=== PATIENT | female | born 1955 | race Two or more races ===

== ENCOUNTER 2017-08-03 09:50 | Day surgery (SDC) | payer BC ==
[~2017-08-03] VITALS: Ht 170.2 cm; Wt 66.2 kg
[2017-08-03] VITALS (8 sets, daily range): BP systolic 118–145; BP diastolic 72–87
[2017-08-03] MEDS ORDERED: DIOVAN HCT 3201 EACH ORAL (10:30)
[2017-08-03] MEDS ORDERED: ATENOLOL50 MG ORAL (10:30)
[2017-08-03] MEDS ORDERED: Lidocaine 1% MPF 10mg/ml 5ml ONE (11:00)
[2017-08-03] MEDS ORDERED: Propofol 200mg/20ml IV ONE (11:00)
[2017-08-03 11:13] LABS: BASOPHILS % (AUTO) 1.7 % (0.0-2.0); EOSINOPHILS % (AUTO) 2.8 % (0.0-3.0); HEMATOCRIT 41.8 % (37.0-47.0); HEMOGLOBIN 13.6 G/DL (12.0-16.0); LYMPHOCYTES % (AUTO) 36.2 % (20.0-45.0); MEAN CORPUSCULAR VOLUME 91 FL (80-99); MONOCYTES % (AUTO) 5.2 % (1.0-10.0); NEUTROPHILS % (AUTO) 54.1 % (45.0-75.0); PLATELET COUNT 215 K/UL (150-450); RED BLOOD COUNT 4.61 M/UL (4.20-5.40); RED CELL DISTRIBUTION WIDTH 11.8 % (11.6-14.8); WHITE BLOOD COUNT 4.1 K/UL (4.8-10.8)
--- NOTE | 2017-08-03 11:22 | Pre-Procedure Note/Attestation ---
Pre-Procedure Note/Attestation Complete Prior to Procedure Planned Procedure: not applicable Procedure Narrative: EGD/EUS/colonoscopy Indications for Procedure Pre-Operative Diagnosis: screening colon, esoph out let obstruction Attestation I attest that I discussed the nature of the procedure; its benefits; risks and complications; and alternatives (and the risks and benefits of such alternatives ), prior to the procedure, with the patient (or the patient's legal pharmacy services representative). I attest that, if there was a reasonable possibility of needing a blood transfusion, the patient (or the patient's legal pharmacy services representative) was given the [facility] standardized written summary, pursuant to the Charan Tomasz Blood Safety Act ([place] Health and Safety Code # 1645, as amended). I attest that I re-evaluated the patient just prior to the surgery and that there has been no change in the patient's H&P, except as documented below: LILIBETH PATTERSON Aug 03, 2017 11:22
--- NOTE | 2017-08-03 11:22 | Pre-Procedure Note/Attestation ---
Pre-Procedure Note/Attestation Complete Prior to Procedure Planned Procedure: not applicable Procedure Narrative: EGD/EUS/colonoscopy Indications for Procedure Pre-Operative Diagnosis: screening colon, esoph out let obstruction Attestation I attest that I discussed the nature of the procedure; its benefits; risks and complications; and alternatives (and the risks and benefits of such alternatives ), prior to the procedure, with the patient (or the patient's legal bilingual sales representative). I attest that, if there was a reasonable possibility of needing a blood transfusion, the patient (or the patient's legal bilingual sales representative) was given the [facility] standardized written summary, pursuant to the Charan Tomasz Blood Safety Act ([place] Health and Safety Code # 1645, as amended). I attest that I re-evaluated the patient just prior to the surgery and that there has been no change in the patient's H&P, except as documented below: LILIBETH PATTERSON Aug 03, 2017 11:22
--- NOTE | 2017-08-03 11:22 | Pre-Procedure Note/Attestation ---
Pre-Procedure Note/Attestation Complete Prior to Procedure Planned Procedure: not applicable Procedure Narrative: EGD/EUS/colonoscopy Indications for Procedure Pre-Operative Diagnosis: screening colon, esoph out let obstruction Attestation I attest that I discussed the nature of the procedure; its benefits; risks and complications; and alternatives (and the risks and benefits of such alternatives ), prior to the procedure, with the patient (or the patient's legal credit representative). I attest that, if there was a reasonable possibility of needing a blood transfusion, the patient (or the patient's legal credit representative) was given the [facility] standardized written summary, pursuant to the Charan Tomasz Blood Safety Act ([place] Health and Safety Code # 1645, as amended). I attest that I re-evaluated the patient just prior to the surgery and that there has been no change in the patient's H&P, except as documented below: LILIBETH PATTERSON Aug 03, 2017 11:22
--- NOTE | 2017-08-03 11:24 | Short Stay Surgery H&P ---
History of Present Illness History of Present Illness Chief Complaint see recent office consult HPI Leticia Eckert is a 62 year old female who was admitted on for Heartburn, Nausea Patient History Allergies: Uncoded Allergies: AVALOX (Allergy, Severe, 08/03/17) PALPITATION PAST MEDICAL HISTORY: Past Surgeries: Social History: Medication History Scheduled Atenolol* (Tenormin*), 50 MG ORAL DAILY, (Reported) Valsartan/Hydrochlorothiazide 320-12.5MG (Diovan Hct 320-12.5 Mg Tab), 1 TAB ORAL DAILY, (Reported) Physical Exam Vital Signs Last Vital Signs Date Time Temp Pulse Resp B/P (MAP) Pulse Ox O2 Delivery O2 Flow Rate FiO2 08/03/17 10:34 97.2 51 20 144/85 100 Room Air Labs Laboratory Tests Test 08/03/17 10:50 White Blood Count 4.1 K/UL (4.8-10.8) L Red Blood Count 4.61 M/UL (4.20-5.40) Hemoglobin 13.6 G/DL (12.0-16.0) Hematocrit 41.8 % (37.0-47.0) Mean Corpuscular Volume 91 FL (80-99) Mean Corpuscular Hemoglobin 29.5 PG (27.0-31.0) Mean Corpuscular Hemoglobin Concent 32.5 G/DL (32.0-36.0) Red Cell Distribution Width 11.8 % (11.6-14.8) Platelet Count 215 K/UL (150-450) Mean Platelet Volume 9.0 FL (6.5-10.1) Neutrophils (%) (Auto) 54.1 % (45.0-75.0) Lymphocytes (%) (Auto) 36.2 % (20.0-45.0) Monocytes (%) (Auto) 5.2 % (1.0-10.0) Eosinophils (%) (Auto) 2.8 % (0.0-3.0) Basophils (%) (Auto) 1.7 % (0.0-2.0) Prothrombin Time Pending Prothromb Time International Ratio Pending Activated Partial Thromboplast Time Pending Sodium Level Pending Potassium Level Pending Chloride Level Pending Carbon Dioxide Level Pending Blood Urea Nitrogen Pending Creatinine Pending Estimat Glomerular Filtration Rate Pending Glucose Level Pending Calcium Level Pending Total Bilirubin Pending Aspartate Amino Transf (AST/SGOT) Pending Alanine Aminotransferase (ALT/SGPT) Pending Alkaline Phosphatase Pending Total Protein Pending Albumin Pending Globulin Pending Plan Attestation Are the patient's medical conditions optimized for surgery? LILIBETH PATTERSON Aug 03, 2017 11:24
[2017-08-03 11:30] LABS: INR 1.1 (0.9-1.1)
--- NOTE | 2017-08-03 11:31 | Short Stay Surgery H&P ---
History of Present Illness History of Present Illness Chief Complaint screening colon, GERD HPI Leticia Eckert is a 62 year old female who was admitted on for Heartburn, Nausea Patient History Allergies: Uncoded Allergies: AVALOX (Allergy, Severe, 08/03/17) PALPITATION PAST MEDICAL HISTORY: (1) HTN (hypertension) (2) Arthritis Past Surgeries: Social History: Medication History Scheduled Atenolol* (Tenormin*), 50 MG ORAL DAILY, (Reported) Valsartan/Hydrochlorothiazide 320-12.5MG (Diovan Hct 320-12.5 Mg Tab), 1 TAB ORAL DAILY, (Reported) Review of Systems Cardiovascular: Reports: no symptoms Respiratory: Reports: no symptoms Skeletal: Reports: no symptoms Gastrointestinal: Reports: no symptoms, gastro esophageal reflux disease Genitourinary: Reports: no symptoms Neurologic: Reports: no symptoms Endocrine: Reports: no symptoms Hematologic: Reports: no symptoms Physical Exam Vital Signs Last Vital Signs Date Time Temp Pulse Resp B/P (MAP) Pulse Ox O2 Delivery O2 Flow Rate FiO2 08/03/17 10:34 97.2 51 20 144/85 100 Room Air Labs Laboratory Tests Test 08/03/17 10:50 White Blood Count 4.1 K/UL (4.8-10.8) L Red Blood Count 4.61 M/UL (4.20-5.40) Hemoglobin 13.6 G/DL (12.0-16.0) Hematocrit 41.8 % (37.0-47.0) Mean Corpuscular Volume 91 FL (80-99) Mean Corpuscular Hemoglobin 29.5 PG (27.0-31.0) Mean Corpuscular Hemoglobin Concent 32.5 G/DL (32.0-36.0) Red Cell Distribution Width 11.8 % (11.6-14.8) Platelet Count 215 K/UL (150-450) Mean Platelet Volume 9.0 FL (6.5-10.1) Neutrophils (%) (Auto) 54.1 % (45.0-75.0) Lymphocytes (%) (Auto) 36.2 % (20.0-45.0) Monocytes (%) (Auto) 5.2 % (1.0-10.0) Eosinophils (%) (Auto) 2.8 % (0.0-3.0) Basophils (%) (Auto) 1.7 % (0.0-2.0) Prothrombin Time Pending Prothromb Time International Ratio Pending Activated Partial Thromboplast Time Pending Sodium Level Pending Potassium Level Pending Chloride Level Pending Carbon Dioxide Level Pending Blood Urea Nitrogen Pending Creatinine Pending Estimat Glomerular Filtration Rate Pending Glucose Level Pending Calcium Level Pending Total Bilirubin Pending Aspartate Amino Transf (AST/SGOT) Pending Alanine Aminotransferase (ALT/SGPT) Pending Alkaline Phosphatase Pending Total Protein Pending Albumin Pending Globulin Pending Immunoglobulin A Pending Endomysial IgA Antibody Pending Tissue Transglutaminase IgA Ab Pending Anti-Gliadin IgA Antibody Pending Skin: normal HENT: normal Heart: normal Lungs: normal Abdomen: normal Extremities: normal Plan Plan of Care colonoscopy, EGD/EUS Final Diagnosis: Attestation Are the patient's medical conditions optimized for surgery? Attestation Response: yes LILIBETH PATTERSON Aug 03, 2017 11:31
[2017-08-03 11:49] LABS: ALANINE AMINOTRANSFERASE 15 U/L (12-78); ALKALINE PHOSPHATASE 79 U/L (46-116); ANION GAP 11 mmol/L (5-15); ASPARTATE AMINO TRANSFERASE 18 U/L (15-37); BILIRUBIN,TOTAL 0.8 MG/DL (0.2-1.0); BLOOD UREA NITROGEN 13 mg/dL (7-18); CARBON DIOXIDE 25 MMOL/L (21-32); CHLORIDE 104 MMOL/L (98-107); POTASSIUM 3.5 MMOL/L (3.5-5.1); SODIUM 140 MMOL/L (136-145)
--- NOTE | 2017-08-03 12:06 | Anethesia Preoperative Eval ---
Anesthesia Pre-op PMH/ROS General Date of Evaluation: Aug 03, 2017 Time of Evaluation: 11:15 Anesthesiologist: nia ASA Score: ASA 3 Mallampati Score Class I : Soft palate, uvula, fauces, pillars visible Class II: Soft palate, uvula, fauces visible Class III: Soft palate, base of uvula visible Class IV: Only hard plate visible Mallampati Classification: Class II Surgeon: hair Diagnosis: dysphagia Surgical Procedure: egd/eus Anesthesia History: none Social History: smoking Family History: no anesthesia problems Allergies: Uncoded Allergies: AVALOX (Allergy, Severe, 08/03/17) PALPITATION Medications: see eMAR Past Medical History Cardiovascular: Reports: HTN, arrhythmia Endocrine: Reports: hypothyroidism Musculoskeletal/Integumentary: Reports: OA Anesthesia Pre-op Phys. Exam Physician Exam Last Vital Signs Date Time Temp Pulse Resp B/P (MAP) Pulse Ox O2 Delivery O2 Flow Rate FiO2 08/03/17 10:34 97.2 51 20 144/85 100 Room Air Constitutional: NAD Neurologic: CN 2-12 intact Cardiovascular: RRR Respiratory: CTA Gastrointestinal: S/NT/ND Airway Exam Mallampati Score: Class II MO: full Neck: supple TMD: 2fb ROM: full Teeth: intact Anesthesia Pre-op A/P Labs Hematology Test 08/03/17 10:50 White Blood Count 4.1 K/UL (4.8-10.8) L Red Blood Count 4.61 M/UL (4.20-5.40) Hemoglobin 13.6 G/DL (12.0-16.0) Hematocrit 41.8 % (37.0-47.0) Mean Corpuscular Volume 91 FL (80-99) Mean Corpuscular Hemoglobin 29.5 PG (27.0-31.0) Mean Corpuscular Hemoglobin Concent 32.5 G/DL (32.0-36.0) Red Cell Distribution Width 11.8 % (11.6-14.8) Platelet Count 215 K/UL (150-450) Mean Platelet Volume 9.0 FL (6.5-10.1) Neutrophils (%) (Auto) 54.1 % (45.0-75.0) Lymphocytes (%) (Auto) 36.2 % (20.0-45.0) Monocytes (%) (Auto) 5.2 % (1.0-10.0) Eosinophils (%) (Auto) 2.8 % (0.0-3.0) Basophils (%) (Auto) 1.7 % (0.0-2.0) Coagulation Test 08/03/17 10:50 Prothrombin Time 11.8 SEC (9.30-11.50) H Prothromb Time International Ratio 1.1 (0.9-1.1) Activated Partial Thromboplast Time 29 SEC (23-33) Chemistry Test 08/03/17 10:50 Sodium Level Pending Potassium Level Pending Chloride Level Pending Carbon Dioxide Level Pending Blood Urea Nitrogen Pending Creatinine Pending Estimat Glomerular Filtration Rate Pending Glucose Level Pending Calcium Level Pending Total Bilirubin Pending Aspartate Amino Transf (AST/SGOT) Pending Alanine Aminotransferase (ALT/SGPT) Pending Alkaline Phosphatase Pending Total Protein Pending Albumin Pending Globulin Pending Studies Pre-op Studies: EKG - sinus bradycardia Risk Assessment & Plan Assessment: asa3 Plan: mac Status Change Before Surgery: No Pre-Antibiotics Drug: PAOLO Newman Aug 03, 2017 12:06
[2017-08-03] MEDS ORDERED: DiphenhydrAMINE 50mg/ml Inj IVP PRN (12:15)
[2017-08-03] MEDS ORDERED: Midazolam 2mg/2ml Inj IVP PRN (12:15)
[2017-08-03] MEDS ORDERED: fentaNYL 100 mcg/2 mL IV PRN (12:15)
[2017-08-03] MEDS ORDERED: Atropine Inj 1mg/10ml Syr IV PRN (12:15)
--- NOTE | 2017-08-03 12:49 | Immediate Post-Op Evaluation ---
Immediate Post-Op Evalulation Immediate Post-Op Evalulation Procedure: egd/eus/colonoscopy Date of Evaluation: Aug 03, 2017 Time of Evaluation: 12:36 IV Fluids: 500ml 0.9ns Blood Products: none Estimated Blood Loss: negligible Blood Pressure Systolic: 118 Blood Pressure Diastolic: 79 Pulse Rate: 57 Respiratory Rate: 18 O2 Sat by Pulse Oximetry: 100 Temperature (Fahrenheit): 96.9 Pain Score (1-10): 0 Nausea: No Vomiting: No Complications none Patient Status: awake, reacts, patent Hydration Status: adequate Drug: PAOLO Newman Aug 03, 2017 12:49
--- NOTE | 2017-08-03 12:51 | 48 Hour Post Anesthesia Eval ---
Post Anesthesia Evaluation Procedure: egd/eus/colonoscopy Date of Evaluation: Aug 03, 2017 Time of Evaluation: 12:49 Blood Pressure Systolic: 126 0: 76 Pulse Rate: 49 Respiratory Rate: 18 Temperature (Fahrenheit): 96.9 O2 Sat by Pulse Oximetry: 100 Airway: patent Nausea: No Vomiting: No Pain Intensity: 0 Hydration Status: adequate Cardiopulmonary Status: stable Mental Status/LOC: patient returned to baseline Post-Anesthesia Complications: none Follow-up care needed: N/A PAOLO OLIVA Aug 03, 2017 12:51
--- NOTE | 2017-08-03 18:15 | Procedure Note ---
DATE OF PROCEDURE: 08/03/2017 SURGEON: Josiah Hudson M.D. PROCEDURE: Upper endoscopy with biopsy and endoscopic ultrasound and colonoscopy. ANESTHESIOLOGIST: Lydia Roberson M.D. INSTRUMENT: Olympus adult flexible upper endoscope, colonoscope, and EUS scope. INDICATION: Esophageal obstruction based on manometry study, chronic GERD, and need for screening colonoscopy. REASON FOR PROCEDURE: The procedure, risks, benefits, and possible consequences, including hemorrhage, aspiration, perforation and infection, and alternative treatments, were explained to the patient/legal guardian by Dr. Josiah Hudson and the patient/legal guardian understood and accepted these risks. PROCEDURE: After informed consent was obtained and the patient was adequately sedated, first Olympus upper endoscope was advanced from mouth into the second portion of duodenum and retroflexion was performed in stomach. GE junction was found to be about 37 cm from the incisors. No obvious luminal mass was seen at the GE junction. In the stomach, there was diffuse gastritis. Random biopsy from antrum, body was obtained to rule out H. pylori infection. At this time, the upper endoscope was retrieved, then EUS radial scope was introduced. Scanning at the GE junction showed no obvious mass seen at the GE junction. No obvious lymphadenopathy was seen. Celiac axis was seen without any obvious celiac axis lymphadenopathy. Left adrenal gland was vividly seen without any obvious pathology on it. Pancreatic body and tail was examined without any pathology. Pancreatic duct measured only 1.7 mm in the tail of the pancreas. There was no obvious mass in the pancreatic body or tail or in the distal esophagus. At this time, the scope was retrieved and the patient was turned over for colonoscopy. First, a rectal exam was performed, which was normal. Then, the scope was advanced from rectum into the cecum documented by appendiceal orifice, ileocecal valve, and upper quadrant palpation. Quality of prep was good. The patient had two diminutive polyps in the sigmoid colon. Both were removed with the cold biopsy forceps technique. The rest of the examination was within normal limits. Retroflexion of the rectum showed evidence of medium-sized internal hemorrhoids. SUMMARY OF FINDINGS: 1. Gastritis status post biopsy. 2. No obvious distal esophageal mass based on the EUS findings. 3. Two colonic polyps removed, see above for details. 4. Internal hemorrhoids. RECOMMENDATIONS: 1. Follow up biopsy results and treat accordingly. 2. The patient will need repeat colonoscopy in five years. I want to thank Dr. Interiano for this kind referral. Josiah Hudson M.D. DR: Safia JOB#: [id number] CC: Laisha Blair M.D.; Fax#: [phone]
--- NOTE | 2017-08-04 10:28 | Endoscopy Procedure Note ---
Endoscopy Procedure Note Indication for Procedure: screening colon, GERD Procedures Performed: EGD, colonoscopy, other - EUS Operative Findings/Diagnosis: 2 colon polyps Specimen: yes Pt Tolerated Procedure Well: Yes Estimated Blood Loss: none Anesthesiologist: halima Anesthesia: MAC Implant(s) used?: No 50 yrs or older w/o bx or poly: No 10yrs. F/U not recommended: Yes If not recommended, why?: Above average risk 10 yrs. F/U needed: Yes 18 years or older w/prev. colo: No LILIBETH PATTERSON Aug 04, 2017 10:28
--- NOTE | 2017-08-04 15:44 | Cardiology Report ---
APPROVED REPORT EKG Measurement Heart [id number] Sinus bradycardia Otherwise normal ECG
--- NOTE | 2017-08-04 15:44 | Cardiology Report ---
APPROVED REPORT EKG Measurement Heart [id number] 148P54 [id number] Sinus bradycardia Otherwise normal ECG
--- NOTE | 2017-08-04 15:44 | Cardiology Report ---
APPROVED REPORT EKG Measurement Heart [id number] [place] 148P54 [id number] Sinus bradycardia Otherwise normal ECG
== END 2017-08-03 13:40 | disposition home or self-care (01) ==
LOC: GAS 09:50
DX: Z12.11 Encounter for screening for malignant neoplasm of colon (principal); K21.9 Gastro-esophageal reflux disease without esophagitis; K22.2 Esophageal obstruction; K63.5 Polyp of colon; K64.8 Other hemorrhoids; K29.50 Unspecified chronic gastritis without bleeding; D12.5 Benign neoplasm of sigmoid colon
CPT/HCPCS: 36415; 43239; 43259; 45380; 80053; 82784; 83516; 83520; 85025; 85610; 85730; 86255; 93005; J2704; 94003; 94150